=== PATIENT | male | born 2000 | race Two or more races ===

== ENCOUNTER 2022-03-19 11:06 | Emergency (ER) | payer SELFPAY ==
[2022-03-19] MEDS ORDERED: Alum Hydro/Mag Hydro/Simeth XS 15 ML, Metoclopramide 5 MG, Lidocaine 2% 5 ML PO ONE ×3 (11:55)
[2022-03-19] MEDS ORDERED: Pantoprazole 40 MG in Sodium Chloride 0.9% 10 ML IVPUSH STA (11:55)
[2022-03-19 12:26] LABS: BLOOD UREA NITROGEN,BUN 13 mg/dL (7.0-18.0); CARBON DIOXIDE,CO2 27.4 mmol/L (21.0-32.0); CHLORIDE,CL 101 mmol/L (98-107); GLUCOSE RANDOM 73 mg/dL (74-106); LIPASE 76 U/L (73-393); POTASSIUM,K 3.8 mmol/L (3.5-5.1); SODIUM,NA 136 mmol/L (136-148)
== END 2022-03-19 13:15 | disposition home or self-care (01) ==
LOC: MW.ED 11:06
DX: K29.70 Gastritis, unspecified, without bleeding (principal)
CPT/HCPCS: 36415; 80053; 83690; 85025; 96374; 99284; A9270; C9113; J3490

== ENCOUNTER 2022-05-25 04:46 | Inpatient (IN) | payer SELFPAY ==
[2022-05-25] MEDS ORDERED: LORazepam 2 MG/ML SDV IVPUSH ONE (04:50)
[2022-05-25] MEDS ORDERED: Sodium Chloride 0.9% 1,000 ML IV ONE ×3 (05:03→07:49)
[2022-05-25 05:27] LABS: BLOOD UREA NITROGEN,BUN 20 mg/dL (7.0-18.0); CARBON DIOXIDE,CO2 21.1 mmol/L (21.0-32.0); CHLORIDE,CL 100 mmol/L (98-107); GLUCOSE RANDOM 199 mg/dL (74-106); POTASSIUM,K 4.5 mmol/L (3.5-5.1); SODIUM,NA 139 mmol/L (136-148)
[2022-05-25 05:29] LABS: ESTIMATED GFR 40 mL/min (>60)
[2022-05-25] MEDS ORDERED: Cefepime 2 GM in Premix Bag 1 BAG IV ONE (07:48)
[2022-05-25 07:55] LABS: ACETAMINOPHEN <2.0 ug/mL
[2022-05-25] MEDS ORDERED: Sodium Chloride 0.9% 1,000 ML IV SCH ×2 (08:00→23:15)
[2022-05-25] MEDS ORDERED: Norepinephrine 4 MG in Dextrose 5% in Water 246 ML IV SCH ×2 (10:45)
[2022-05-25] MEDS: Sodium Chloride 0.9% 1,000 ML IV SCH ×2 (15:24→22:53)
[2022-05-25] MEDS ORDERED: Cefepime 2 GM in Premix Bag 1 BAG IV SCH (23:00)
[2022-05-26 06:47] LABS: POTASSIUM,K 3.6 mmol/L (3.5-5.1)
[2022-05-26] MEDS ORDERED: Heparin Sodium 5,000 Units/ML Vial SUBCUT SCH (08:00)
[2022-05-26] MEDS ORDERED: Benzonatate 100 MG Cap PO PRN (08:41)
== END 2022-05-26 09:40 | disposition home or self-care (01) | DRG 917 ==
LOC: MW.ED 04:46 → MW.ICU 18:52
PROVIDERS: ADMIT Internal Medicine; ATTEND Internal Medicine
PROC: 3E033XZ Introduction of Vasopressor into Peripheral Vein, Percutaneous Approach (ICD-10-PCS; principal; 2022-05-25)
DX: T40.2X1A Poisoning by other opioids, accidental (unintentional), initial encounter (principal); A41.9 Sepsis, unspecified organism; R65.21 Severe sepsis with septic shock; J69.0 Pneumonitis due to inhalation of food and vomit; N17.9 Acute kidney failure, unspecified; G93.40 Encephalopathy, unspecified; F17.200 Nicotine dependence, unspecified, uncomplicated; Z20.822 Contact with and (suspected) exposure to COVID-19
CPT/HCPCS: 36415; 71045; 71045-26; 74176; 74176-26; 80053; 80143; 80179; 80202; 80305-QW; 80307; 81001; 82550; 83605; 85025; 85610; 87040; 93005; 99221; 99239; J0692; J1644; J2060; J3370; J7030; J7050; U0002